=== PATIENT | male | born 1990 | race Caucasian/White ===

== ENCOUNTER 2017-05-26 15:10 | Emergency (ER) | payer MEDICAID ==
[~2017-05-26] VITALS: Ht 175.3 cm; Wt 72.6 kg
[2017-05-26 15:16] VITALS: BP_SYST 145
[2017-05-26 16:36] LABS: HEMATOCRIT 41.3 % (36-54); HEMOGLOBIN 14.2 g/dL (14.0-18.0); MEAN CORPUSCULAR HEMOGLOBIN 35 pg (27-31); MEAN CORPUSCULAR HGB CONC 34 % (32-36); MEAN CORPUSCULAR VOLUME 102 fL (79.0-98.0); PLATELET COUNT (AUTO) 188 K/uL (130-430); RED BLOOD CELL COUNT(AUTO) 4.04 MIL/uL (4.2-6.2); RED CELL DISTRIBUTION WIDTH 12.5 % (9.0-15.0); WHITE BLOOD COUNT (AUTO) 5.2 K/uL (4.8-10.8)
[2017-05-26 16:38] LABS: CALCIUM 7.7 mg/dL (8.4-11.0); CREATININE 0.61 mg/dL (0.55-1.30); POTASSIUM 3.4 mmol/L (3.5-5.1)
[2017-05-26 16:43] LABS: ALBUMIN 3.9 g/dL (3.4-4.8); TOTAL BILIRUBIN 0.3 mg/dL (0.0-1.0); TOTAL PROTEIN, SERUM 7.9 g/dL (6.4-8.3)
[2017-05-26 17:13] LABS: ATYPICAL LYMPHOCYTES % 0 % (0-0); BAND % (MANUAL) 0 % (0-6); BASOPHILS % (MANUAL) 0 % (0-2); EOSINOPHILS % (MANUAL) 10 % (0-7); LYMPHOCYTES % (MANUAL) 27 % (20-46); MONOCYTES % (MANUAL) 5 % (0-11)
[2017-05-26 20:49] VITALS: BP_SYST 136
== END 2017-05-26 20:49 | disposition home or self-care (01) ==
LOC: SED 15:10
DX: F10.129 Alcohol abuse with intoxication, unspecified (principal); R51 Headache; Y90.8 Blood alcohol level of 240 mg/100 ml or more
CPT/HCPCS: 36415; 70450; 72125; 80053; 85007; 85027; 99285; G0482

== ENCOUNTER 2018-05-04 17:15 | Emergency (ER) | payer MEDICAID ==
[~2018-05-04] VITALS: Ht 172.7 cm; Wt 81.6 kg
[2018-05-04 17:27] VITALS: BP_SYST 137
[2018-05-04 17:55] VITALS: BP_SYST 137
== END 2018-05-04 17:55 | disposition home or self-care (01) ==
LOC: SED 17:15
DX: S30.811A Abrasion of abdominal wall, initial encounter (principal); F10.129 Alcohol abuse with intoxication, unspecified; Y09 Assault by unspecified means; Y93.89 Activity, other specified; Y92.89 Other specified places as the place of occurrence of the external cause; Y99.8 Other external cause status
CPT/HCPCS: 99283

== ENCOUNTER 2020-01-04 23:45 | Emergency (ER) | payer MEDICAID ==
[~2020-01-04] VITALS: Ht 167.6 cm; Wt 78.0 kg
[2020-01-04 23:50] VITALS: BP_SYST 140
--- NOTE | 2020-01-04 23:50 | NUR ---
Patient triaged and placed in [facility] [address] [facility] gurney. VSS and patient appears in no acute distress at this time. Accompanied by ems, awaiting available bed, and MD notified of need for MSE.
--- NOTE | 2020-01-05 00:30 | NUR ---
Pt yelling ambulance staff and asking them to clean the gurney cover then pt walked out the er .Dr Astudillo notified.
--- NOTE | 2020-01-05 00:31 | NUR ---
pt lwbs by Dr Astudillo.
== END 2020-01-05 00:31 | disposition left against medical advice (07) ==
LOC: SED 23:45
DX: R10.9 Unspecified abdominal pain (principal); Z53.21 Procedure and treatment not carried out due to patient leaving prior to being seen by health care provider

== ENCOUNTER 2020-03-07 15:33 | Emergency (ER) | payer MEDICAID ==
[~2020-03-07] VITALS: Ht 172.7 cm; Wt 79.4 kg
[2020-03-07 15:45] VITALS: BP_SYST 125
[2020-03-07 16:00] VITALS: BP_SYST 125
== END 2020-03-07 16:00 | disposition left against medical advice (07) ==
LOC: SED 15:33
DX: R10.9 Unspecified abdominal pain (principal); M25.561 Pain in right knee; Z53.21 Procedure and treatment not carried out due to patient leaving prior to being seen by health care provider